=== PATIENT | female | born 1965 | race Caucasian/White ===

== ENCOUNTER 2016-08-08 12:45 | Observation (INO) | payer BC ==
[~2016-08-08] VITALS: Ht 165.1 cm; Wt 93.8 kg
[~2016-08-08 12:45] MED LIST: CLR10 PO; ESCI10TA17 PO
[2016-08-08] MEDS ORDERED: [UNRECOGNIZED DRUG - CODE] PO (12:57)
--- NOTE | 2016-08-08 13:12 | DIAGNOSTIC IMAGING REPORT ---
CHEST ONE VIEW PORTABLE CLINICAL HISTORY: Chest pain. Left arm pressure and numbness. COMPARISON STUDY: Chest radiograph March 30, 2011. FINDINGS: Lung volumes are normal. There is no pneumothorax or pleural effusion. There is no evidence of pulmonary edema. Cardiac size is normal. Mediastinal contours are normal. No consolidation is identified. IMPRESSION: No acute cardiopulmonary findings. Electronically signed by: Jad Gar M.D. 08/08/2016 1:10 PM Dictated Date/Time: 08/08/2016 1:10 PM
[2016-08-08 13:16] LABS: HEMATOCRIT 39.1 % (37-47); MEAN CELL VOLUME 93.1 fL (80-100); MEAN CORPUSCULAR HEMOGLOBIN 31.4 pg (25-34); MEAN CORPUSCULAR HGB CONC 33.8 g/dl (32-36); MEAN PLATELET VOLUME 8.9 fL (7.4-10.4); PLATELET COUNT 326 K/uL (130-400); WHITE BLOOD COUNT 5.91 K/uL (4.8-10.8)
[2016-08-08 13:26] LABS: PARTIAL THROMBOPLASTIN RATIO 1.1; PROTHROMBIN TIME (PATIENT) 10.4 SECONDS (9.0-12.0)
[2016-08-08 13:32] LABS: ALT/SGPT 25 U/L (12-78); AST/SGOT 17 U/L (15-37); BLOOD UREA NITROGEN 14 mg/dl (7-18); BUN/CREATININE RATIO 19.7 (10-20); CALCIUM 9.1 mg/dl (8.5-10.1); CARBON DIOXIDE 24 mmol/L (21-32); CHLORIDE 105 mmol/L (98-107); CREATININE 0.71 mg/dl (0.60-1.20); GLUCOSE 97 mg/dl (70-99); SODIUM 139 mmol/L (136-145)
[2016-08-08 13:37] LABS: ALB/GLOB RATIO 1.1 (0.9-2); ALKALINE PHOSPHATASE 46 U/L (45-117)
[2016-08-08] MEDS ORDERED: OPTIRAY 320 IV PRN (15:15)
--- NOTE | 2016-08-08 15:19 | DIAGNOSTIC IMAGING REPORT ---
CT ANGIOGRAM OF THE CHEST CLINICAL HISTORY: Chest pain and elevated d-dimer COMPARISON STUDY: Chest x-ray dated 08/08/2016 TECHNIQUE: Following the IV administration of 95 mL of Optiray-320, CT angiogram of the thorax was performed from the thoracic inlet to the lung bases utilizing the pulmonary embolus protocol. Images are reviewed in the axial, sagittal, and coronal planes. IV contrast was administered without complication. MIP imaging was performed. CT DOSE: 520.54 mGy.cm FINDINGS: No pathologically enlarged axillary mediastinal or hilar lymph nodes were visualized. There was no evidence of thoracic aortic dilatation. There were no pulmonary artery filling defects to indicate acute pulmonary embolism. No pleural effusions are visualized. There are minor dependent and lingular atelectatic changes. There is a 9 mm hypodensity within the right lobe of the liver. This approaches water attenuation likely represents a small cyst IMPRESSION: 1. No acute intrathoracic findings 2. No evidence of acute pulmonary embolism 3. No evidence of pathologic adenopathy 4. No evidence of focal pulmonary consolidation Electronically signed by: Itz Grimm M.D. 08/08/2016 3:16 PM Dictated Date/Time: 08/08/2016 3:12 PM
--- NOTE | 2016-08-08 16:28 | EMERGENCY ROOM VISIT NOTE ---
History First contact with patient: 13:36 Chief Complaint: CHEST PAIN Stated Complaint: SLIGHT CHEST PAIN, NUMBNESS AND PRESSURE L ARM Nursing Triage Summary: Pt c/o mid sternal chest pressure that started yesterday at 1000 Pt reports pressure is intermittent Pt also report left arm has been going numb for 2 days denies nausea, diaphoresis, SOB History of Present Illness The patient is a 50 year old female who presents to the Emergency Room with complaints of chest pain. The patient states yesterday at approximately 10 AM she had an episode where she fell like someone was "squeezing" her chest. She states it only lasted a few seconds. She had the same pain prior to arrival today. She denies any associated shortness of breath or diaphoresis the patient does admit to feeling some numbness in her left arm. She states that the numbness is getting better and now she just feels a tingling. She states the same thing happened yesterday when she got the pain.. The patient denies any history of cardiac disease but does admit to a family history of early cardiac disease in her father. He had an OK at age 42. The patient also stated that she was recently told that her cholesterol was a little high and that they want her to watch her diet more closely. She does not smoke. The patient is on hormones for menorrhagia. The patient denies any bleeding or clotting disorders. . Review of Systems 10 system review was performed and was negative unless stated otherwise history of present illness. Social History Smoking Status: Never Smoker Smokeless Tobacco Use: No Alcohol Use: none Drug Use: none Marital Status: Housing Status: lives with family Occupation Status: employed Current/Historical Medications Scheduled Escitalopram (Lexapro), 10 MG PO DAILY Loratadine (Claritin), 10 MG PO DAILY Norgestrel & Ethinyl Estradiol (Low-Ogestrel), 1 TAB PO DAILY Allergies Coded Allergies: Bacitracin (Unverified Allergy, Unknown, rash, 08/08/16) Neomycin (Unverified Allergy, Unknown, rash, 08/08/16) Polymyxin B (Unverified Allergy, Unknown, rash, 08/08/16) Sulfa Drugs (Verified Allergy, Unknown, BACTRIM, 08/08/16) Uncoded Allergies: ANTIHISTAMINE (Allergy, Unknown, 04/19/15) Physical Exam Vital Signs Date Time Temp Pulse Resp B/P Pulse Ox O2 Delivery O2 Flow Rate FiO2 08/08/16 14:42 73 18 128/86 99 Room Air 08/08/16 12:54 37.0 73 18 132/91 96 Room Air 08/08/16 12:54 96 Room Air Pain Rating (0-10): 0 Physical Exam GENERAL: 42-year-old white female appears in no acute distress. MENTAL Status: Alert and oriented 3. EYES: PERRLA. EOMs intact. EARS: Canals clear. TMs without fluid level noted. NECK: Supple, no lymphadenopathy noted. No carotid bruits noted. LUNGS: Clear auscultation without wheezes rales or rhonchi. CARDIAC: Regular rate and rhythm without murmur. Pulses is full and equal throughout. ABDOMEN: Positive bowel sounds all 4 quadrants. Soft, nontender to palpation without organomegaly or masses. NEURO:Cranial nerves two through 12 intact. Cerebellar function intact with [id number]. Fine motor intact with alternating finger motions. LOWER EXTREMITIES: Calves are nontender. No palpable cords noted. No cyanosis or edema noted. Negative Homans bilaterally. Medical Decision & Procedures ER Provider Diagnostic Interpretation: CHEST ONE VIEW PORTABLE CLINICAL HISTORY: Chest pain. Left arm pressure and numbness. COMPARISON STUDY: Chest radiograph March 30, 2011. FINDINGS: Lung volumes are normal. There is no pneumothorax or pleural effusion. There is no evidence of pulmonary edema. Cardiac size is normal. Mediastinal contours are normal. No consolidation is identified. IMPRESSION: No acute cardiopulmonary findings. Electronically signed by: Jad Gar M.D. CT ANGIOGRAM OF THE CHEST CLINICAL HISTORY: Chest pain and elevated d-dimer COMPARISON STUDY: Chest x-ray dated 08/08/2016 TECHNIQUE: Following the IV administration of 95 mL of Optiray-320, CT angiogram of the thorax was performed from the thoracic inlet to the lung bases utilizing the pulmonary embolus protocol. Images are reviewed in the axial, sagittal, and coronal planes. IV contrast was administered without complication. MIP imaging was performed. CT DOSE: 520.54 mGy.cm FINDINGS: No pathologically enlarged axillary mediastinal or hilar lymph nodes were visualized. There was no evidence of thoracic aortic dilatation. There were no pulmonary artery filling defects to indicate acute pulmonary embolism. No pleural effusions are visualized. There are minor dependent and lingular atelectatic changes. There is a 9 mm hypodensity within the right lobe of the liver. This approaches water attenuation likely represents a small cyst IMPRESSION: 1. No acute intrathoracic findings 2. No evidence of acute pulmonary embolism 3. No evidence of pathologic adenopathy 4. No evidence of focal pulmonary consolidation Electronically signed by: Itz Grimm M.D. 08/08/2016 3:16 PM 08/08/2016 1:10 PM Dictated Date/Time: 08/08/2016 1:10 PM Laboratory Results 08/08/16 13:00 08/08/16 13:00 Test 08/08/16 13:00 08/08/16 13:09 Red Blood Count 4.20 M/uL (4.2-5.4) Mean Corpuscular Volume 93.1 fL (80-100) Mean Corpuscular Hemoglobin 31.4 pg (25-34) Mean Corpuscular Hemoglobin Concent 33.8 g/dl (32-36) RDW Standard Deviation 45.7 fL (36.4-46.3) RDW Coefficient of Variation 13.4 % (11.5-14.5) Mean Platelet Volume 8.9 fL (7.4-10.4) Prothrombin Time 10.4 SECONDS (9.0-12.0) Prothromb Time International Ratio 1.0 (0.9-1.1) Activated Partial Thromboplast Time 28.5 SECONDS (21.0-31.0) Partial Thromboplastin Ratio 1.1 D-Dimer 540 ug/L FEU (0-500) Anion Gap 10.0 mmol/L (3-11) Est Creatinine Clear Calc Drug Dose 110.5 ml/min Estimated GFR () 116.7 Estimated GFR (Non- 100.7 BUN/Creatinine Ratio 19.7 (10-20) Calcium Level 9.1 mg/dl (8.5-10.1) Total Bilirubin 0.3 mg/dl (0.2-1) Aspartate Amino Transf (AST/SGOT) 17 U/L (15-37) Alanine Aminotransferase (ALT/SGPT) 25 U/L (12-78) Alkaline Phosphatase 46 U/L (45-117) Total Creatine Kinase 102 U/L (26-192) Creatine Kinase MB < 0.5 ng/ml (0.5-3.6) Creatine Kinase MB Ratio (0-3.0) Total Protein 7.5 gm/dl (6.4-8.2) Albumin 4.0 gm/dl (3.4-5.0) Globulin 3.5 gm/dl (2.5-4.0) Albumin/Globulin Ratio 1.1 (0.9-2) Bedside Troponin I 0.000 ng/ml (0-0.045) ECG Indication: chest pain Rhythm: normal sinus Findings: no acute ischemic change ED Course Critical pathway was initiated prior to my evaluation of the patient. The patient had been placed on a monitor and continuous pulse ox. IV access was obtained. Chest x-ray was ordered and interpreted by the radiologist as above without any acute findings. EKG was ordered and interpreted by myself as above without any acute findings. This will later be interpreted by the import/export freight forwarder. CBC and differential, renal profile, LFTs and lipase levels were ordered. Coags were ordered, CK-MB, [id number] troponin had already been ordered. Labs were reviewed and were unremarkable. After I evaluated the patient I ordered a [id number] d-dimer. This was elevated and therefore a CT of the chest for PE was ordered and interpreted by the radiologist as above without any acute findings. A second troponin was also ordered and was also negative. The patient's case was discussed with Dr. Campbell who agreed with treatment plan. The hospitalist was consulted for admission. Medical Decision Differential diagnosis include PE, acute OK, angina, panic attack Due to the patient's history of early cardiac disease the patient will be admitted for cardiac rule out. Impression Primary Impression: Chest pain Departure Information Dispostion Being Evaluated By Hospitalist Condition GOOD Referrals Vero Montano, C.R.N.P (PCP) Patient Instructions My [facility]
[2016-08-08] MEDS ORDERED: BISACODYL 10 MG SUPP PR PRN (16:45)
[2016-08-08] MEDS ORDERED: ALUMINUM/MAGNESIUM/SIMETH (MAALOX MAX) 30 ML UDC PO PRN (16:45)
[2016-08-08] MEDS ORDERED: ACETAMINOPHEN 325 MG TAB PO PRN (16:45)
[2016-08-08] MEDS ORDERED: ONDANSETRON INJ 2 MG/ML 2 ML VIAL IV PRN ×2 (16:45)
[2016-08-08] MEDS ORDERED: LORAZEPAM 2 MG/ML 1 ML VIAL IV PRN (16:45)
[2016-08-08] MEDS ORDERED: NITROGLYCERIN 0.4 MG SL PER TAB CHARGE SL PRN (16:45)
[2016-08-08] MEDS ORDERED: PROMETHAZINE HCL INJ 12.5 MG in SODIUM CHLORIDE 0.9% 50ML 50 ML IV PRN (16:45)
[2016-08-08] MEDS ORDERED: ZOLPIDEM TARTRATE 5 MG TAB PO PRN (16:45)
[2016-08-08] MEDS ORDERED: DiphenhydrAMINE HCL 50 MG/ML VIAL IV PRN (16:45)
[2016-08-08] MEDS ORDERED: MoRPHine SULFATE 2 MG/ML CARP IV PRN (16:45)
[2016-08-08] MEDS ORDERED: MAGNESIUM HYDROXIDE SUSP 30 ML UDC PO PRN (16:45)
[2016-08-08 17:53] VITALS: BP 146/93; PULSE 76; TEMP 37.1; O2SAT 96; Ht 165.1 cm; Wt 93.8 kg
[2016-08-08 19:27] VITALS: BP 121/83; PULSE 73; TEMP 36.5; O2SAT 97
[2016-08-08 20:16] VITALS: O2SAT 96
[2016-08-08] MEDS: DOCUSATE SODIUM 100 MG CAP PO SCH (20:21)
[2016-08-08] MEDS ORDERED: IV FLUIDS COMPLETED PRN (20:45)
--- NOTE | 2016-08-08 20:56 | History and Physical ---
History & Physical Date & Time of Service: Aug 08, 2016 at 20:43 Chief Complaint: Chest Pain Radiating To Arm Primary Care Physician: Vero Montano C.R.N.P History of Present Illness Source: patient The patient is a 50-year-old female who presents emergency department complaining of someone squeezing her chest and with discomfort radiating to her left arm. First episode yesterday morning which resolved spontaneously after a few seconds, and a second episode was this morning of the same duration. Her father had an MD at age 42, and she became appropriately concerned and presents emergency department for assessment. She's had no signs of respiratory infection, and no history of asthma or COPD or any of the lung dysfunction. She reports that her last visit her PCP told her that her cholesterol was not optimal and was told to watch her diet more closely. Social History Smoking Status: Never Smoker Smokeless Tobacco Use: No Alcohol Use: none Drug Use: none Marital Status: Housing status: lives with family Occupational Status: employed Multi-Drug Resistant Organisms History of MDRO: No Allergies Coded Allergies: Bacitracin (Unverified Allergy, Unknown, rash, 08/08/16) Neomycin (Unverified Allergy, Unknown, rash, 08/08/16) Polymyxin B (Unverified Allergy, Unknown, rash, 08/08/16) Sulfa Drugs (Verified Allergy, Unknown, BACTRIM, 08/08/16) Uncoded Allergies: ANTIHISTAMINE (Allergy, Unknown, 04/19/15) Home Medications Scheduled Escitalopram (Lexapro), 10 MG PO DAILY Loratadine (Claritin), 10 MG PO DAILY Norgestrel & Ethinyl Estradiol (Low-Ogestrel), 1 TAB PO DAILY Review of Systems The patient denies palpitations, cough, lower extremity swelling, vision change , hearing change, sore throat, fevers, chills, sweats, weight change, fatigue, nausea, vomiting, abdominal pain, pelvic pain, blood in urine or stool, dysuria , urinary frequency or urgency, lightheadedness, dizziness, headache, memory loss, rash, abnormal bruising or bleeding, imbalance, focal or generalized weakness, numbness or tingling in legs, arthralgias or myalgias, back or neck pain, night sweats, or allergy symptoms. The review of systems is otherwise negative other than for that already noted above, and at least 10 systems have been reviewed. Physical Exam Vital Signs Date Time Temp Pulse Resp B/P Pulse Ox O2 Delivery O2 Flow Rate FiO2 08/08/16 20:16 96 Room Air 08/08/16 19:27 36.5 73 18 121/83 97 Room Air 08/08/16 17:53 37.1 76 18 146/93 96 Room Air 08/08/16 17:32 76 18 122/78 96 Room Air 08/08/16 16:33 77 18 105/75 97 Room Air 08/08/16 14:42 73 18 128/86 99 Room Air 08/08/16 12:54 37.0 73 18 132/91 96 Room Air 08/08/16 12:54 96 Room Air The patient is awake, well-developed and adequately nourished, alert and oriented 3, normocephalic and atraumatic, lying in bed and in no acute distress. HEENT--PERRL, EOMI, mucous membranes moist, and oropharynx normal. Neck--supple, no JVD or bruits, thyroid normal, trachea midline, no adenopathy. Heart--normal S1 and S2, no extra beats, no murmurs, rubs or gallops. Lungs--clear bilaterally with good air movement, no respiratory distress, no accessory muscle use. Abdomen--normal bowel sounds and soft, nontender and nondistended, no hernias or masses, no organomegaly. Extremities--no cyanosis, clubbing or edema. There are good distal pulses b/l. Dermatologic--normal skin turgor, normal color, warm and dry, no abnormal lymph nodes, no rash. Neurologic--cranial nerves II through XII grossly intact, motor and sensory examination normal. Rheumatologic--normal range of motion, nontender, muscles and joints. Psychiatric--normal affect. Diagnostics Laboratory Results Results Past 24 Hours Test 08/08/16 13:00 08/08/16 13:09 08/08/16 17:12 Range/Units White Blood Count 5.91 4.8-10.8 K/uL Red Blood Count 4.20 4.2-5.4 M/uL Hemoglobin 13.2 12.0-16.0 g/dL Hematocrit 39.1 37-47 % Mean Corpuscular Volume 93.1 80-100 fL Mean Corpuscular Hemoglobin 31.4 25-34 pg Mean Corpuscular Hemoglobin Concent 33.8 32-36 g/dl RDW Standard Deviation 45.7 36.4-46.3 fL RDW Coefficient of Variation 13.4 11.5-14.5 % Platelet Count 326 130-400 K/uL Mean Platelet Volume 8.9 7.4-10.4 fL Prothrombin Time 10.4 9.0-12.0 SECONDS Prothromb Time International Ratio 1.0 0.9-1.1 Activated Partial Thromboplast Time 28.5 21.0-31.0 SECONDS Partial Thromboplastin Ratio 1.1 D-Dimer 540 0-500 ug/L FEU Sodium Level 139 136-145 mmol/L Potassium Level 4.0 3.5-5.1 mmol/L Chloride Level 105 98-107 mmol/L Carbon Dioxide Level 24 21-32 mmol/L Anion Gap 10.0 3-11 mmol/L Blood Urea Nitrogen 14 7-18 mg/dl Creatinine 0.71 0.60-1.20 mg/dl Est Creatinine Clear Calc Drug Dose 110.5 ml/min Estimated GFR () 116.7 Estimated GFR (Non- 100.7 BUN/Creatinine Ratio 19.7 10-20 Random Glucose 97 70-99 mg/dl Calcium Level 9.1 8.5-10.1 mg/dl Total Bilirubin 0.3 0.2-1 mg/dl Aspartate Amino Transf (AST/SGOT) 17 15-37 U/L Alanine Aminotransferase (ALT/SGPT) 25 12-78 U/L Alkaline Phosphatase 46 45-117 U/L Total Creatine Kinase 102 107 26-192 U/L Creatine Kinase MB < 0.5 < 0.5 0.5-3.6 ng/ml Creatine Kinase MB Ratio 0-3.0 Total Protein 7.5 6.4-8.2 gm/dl Albumin 4.0 3.4-5.0 gm/dl Globulin 3.5 2.5-4.0 gm/dl Albumin/Globulin Ratio 1.1 0.9-2 Bedside Troponin I 0.000 0-0.045 ng/ml Troponin I < 0.015 0-0.045 ng/ml Diagnostic Radiology Patient Name: PITA FERGUSON Unit Number: [id number] Dictated: 08/08/161309 Transcribed: 08/08/161309 Printed Date/Time: [~ rep prt dt]/[~ rep prt tm] [~ rep ct labl] - [~ rep ct ivnm] [facility] [place] [address] Dictated: 08/08/161309 Transcribed: 08/08/161309 JA Printed Date/Time: [~ rep prt dt]/[~ rep prt tm] [~ rep ct labl] - [~ rep ct ivnm] CHEST ONE VIEW PORTABLE CLINICAL HISTORY: Chest pain. Left arm pressure and numbness. COMPARISON STUDY: Chest radiograph March 30, 2011. FINDINGS: Lung volumes are normal. There is no pneumothorax or pleural effusion. There is no evidence of pulmonary edema. Cardiac size is normal. Mediastinal contours are normal. No consolidation is identified. IMPRESSION: No acute cardiopulmonary findings. Electronically signed by: Jad Gar M.D. 08/08/2016 1:10 PM Dictated Date/Time: 08/08/2016 1:10 PM The status of this report is Signed. Draft = Not yet reviewed or approved by Radiologist. Signed = Reviewed and approved by Radiologist. <AttendingPhy></AttendingPhy> <FamilyPhy></FamilyPhy> <PrimaryPhy>Vero Montano C.R.N.P</PrimaryPhy> <UnitNumber>[id number]</UnitNumber> <VisitNumber> [id number]</VisitNumber> <PatientName>PHYLLISPITA Hough</PatientName> < DateOfBirth>1965</DateOfBirth> <Location>[facility]</Location> <ServiceDate></ServiceDate> <MNE>ESINDI</MNE> <OrderingPhy>ED, PROTOCOL</OrderingPhy> < OrderingPhyMNE>f rep ord dr tariq</OrderingPhyMNE> <DictatingPhyMNE>f rep dict dr tariq</DictatingPhyMNE> <CCListMNE>f rep ct mne</CCListMNE> <AdmittingPhyMNE>f pt admit dr tariq</AdmittingPhyMNE> <AttendingPhyMNE>f pt attend dr tariq</ AttendingPhyMNE> <ConsultingPhyMNE>f pt consult dr tariq</ConsultingPhyMNE> <FamilyPhyMNE>f pt fam dr tariq</FamilyPhyMNE> <OtherPhyMNE>f pt other dr tariq</OtherPhyMNE> < PrimaryPhyMNE>f pt prim care dr tariq</PrimaryPhyMNE> <ReferringPhyMNE>f pt referring dr tariq</ReferringPhyMNE> Patient Name: PITA FERGUSON Unit Number: [id number] Dictated: 08/08/161511 Transcribed: 08/08/161511 ARG Printed Date/Time: [~ rep prt dt]/[~ rep prt tm] [~ rep ct labl] - [~ rep ct ivnm] [facility] [place] [address] Dictated: 08/08/161511 Transcribed: 08/08/161511 ARG Printed Date/Time: [~ rep prt dt]/[~ rep prt tm] [~ rep ct labl] - [~ rep ct ivnm] CT ANGIOGRAM OF THE CHEST CLINICAL HISTORY: Chest pain and elevated d-dimer COMPARISON STUDY: Chest x-ray dated 08/08/2016 TECHNIQUE: Following the IV administration of 95 mL of Optiray-320, CT angiogram of the thorax was performed from the thoracic inlet to the lung bases utilizing the pulmonary embolus protocol. Images are reviewed in the axial, sagittal, and coronal planes. IV contrast was administered without complication. MIP imaging was performed. CT DOSE: 520.54 mGy.cm FINDINGS: No pathologically enlarged axillary mediastinal or hilar lymph nodes were visualized. There was no evidence of thoracic aortic dilatation. There were no pulmonary artery filling defects to indicate acute pulmonary embolism. No pleural effusions are visualized. There are minor dependent and lingular atelectatic changes. There is a 9 mm hypodensity within the right lobe of the liver. This approaches water attenuation likely represents a small cyst IMPRESSION: 1. No acute intrathoracic findings 2. No evidence of acute pulmonary embolism 3. No evidence of pathologic adenopathy 4. No evidence of focal pulmonary consolidation Electronically signed by: Itz Grimm M.D. 08/08/2016 3:16 PM Dictated Date/Time: 08/08/2016 3:12 PM The status of this report is Signed. Draft = Not yet reviewed or approved by Radiologist. Signed = Reviewed and approved by Radiologist. <AttendingPhy></AttendingPhy> <FamilyPhy>Vero Montano C.R.N.P</FamilyPhy> < PrimaryPhy>Vero Montano C.R.N.P</PrimaryPhy> <UnitNumber>[id number]</ UnitNumber> <VisitNumber>[id number]</VisitNumber> <PatientName>PITA FERGUSON</PatientName> <DateOfBirth>1965</DateOfBirth> <Location>[facility]</ Location> <ServiceDate>08/08/16</ServiceDate> <MNE>ESINDI</MNE> <OrderingPhy> Alyson Renee PA-C</OrderingPhy> <OrderingPhyMNE>f rep ord dr tariq</ OrderingPhyMNE> <DictatingPhyMNE>f rep dict dr tariq</DictatingPhyMNE> <CCListMNE> f rep ct mne</CCListMNE> <AdmittingPhyMNE>f pt admit dr tariq</AdmittingPhyMNE> < AttendingPhyMNE>f pt attend dr tariq</AttendingPhyMNE> <ConsultingPhyMNE>f pt consult dr tariq</ConsultingPhyMNE> <FamilyPhyMNE>f pt fam dr tariq</FamilyPhyMNE> <OtherPhyMNE>f pt other dr tariq</OtherPhyMNE> < PrimaryPhyMNE>f pt prim care dr tariq</PrimaryPhyMNE> <ReferringPhyMNE>f pt referring dr tariq</ReferringPhyMNE> EKG EKG shows normal sinus rhythm at 69 bpm, and in no acute ST-T changes. Impression Assessment and Plan Precordial chest pain/squeezing with radiation to left arm--the patient will be admitted to the telemetry unit, for serial cardiac enzymes, cardiac rhythm monitoring, and a 2-D echocardiogram with Dopplers. If the above workup is negative, she should have a stress test prior to discharge. She has of note, had a stress test several years ago which was normal. Depression--continue Lexapro 10 mg by mouth daily. Allergy--continue loratadine 10 mg by mouth daily. control--continue for now. She did have a negative CT angio of the chest for PE. Level of Care Telemetry Advanced Directives Existing Advance Directive: No Existing Living Will: No Existing Power of Hospital Intern: No Resuscitation Status FULL RESUSCITATION VTE Prophylaxis VTE Risk Assessment Done? Y/N: Yes Risk Level: Low Given or contraindicated: SCD's Social Service Consult None Apply
[2016-08-09 00:28] VITALS: BP 126/79; PULSE 70; TEMP 36.7; O2SAT 96
[2016-08-09 04:39] VITALS: BP 127/85; PULSE 74; TEMP 36.8; O2SAT 98
[2016-08-09 07:49] VITALS: BP 138/75; PULSE 72; TEMP 36.9; O2SAT 95
[2016-08-09] MEDS: DOCUSATE SODIUM 100 MG CAP PO SCH (07:53)
[2016-08-09 08:15] LABS: BASO % 0.5 %; BASO ABS # 0.03 K/uL (0-0.2); COMPLETE YES; EOS % 4.4 %; HEMATOCRIT 40.8 % (37-47); IG% 0.3 %; LYMPH % 35.5 %; LYMPH ABS # 2.12 K/uL (1.2-3.4); MEAN CELL VOLUME 93.8 fL (80-100); MEAN CORPUSCULAR HGB CONC 33.1 g/dl (32-36); MEAN PLATELET VOLUME 8.9 fL (7.4-10.4); NEUT % 50.3 %; PLATELET COUNT 331 K/uL (130-400); RED BLOOD COUNT 4.35 M/uL (4.2-5.4); WHITE BLOOD COUNT 5.97 K/uL (4.8-10.8)
[2016-08-09 08:47] LABS: BUN/CREATININE RATIO 20.7 (10-20); CALCIUM 8.9 mg/dl (8.5-10.1); CREATININE 0.71 mg/dl (0.60-1.20); MAGNESIUM 2.3 mg/dl (1.8-2.4); POTASSIUM 4.3 mmol/L (3.5-5.1)
[2016-08-09] MEDS ORDERED: LORATADINE 10 MG TAB PO SCH (09:00)
[2016-08-09] MEDS ORDERED: ESCITALOPRAM OXALATE 10 MG TAB PO SCH (09:00)
[2016-08-09 11:49] VITALS: BP 113/78; PULSE 70; TEMP 36.8; O2SAT 97
[2016-08-09] MEDS ORDERED: PERFLUTREN LIPID MICROSPHERE (DEFINITY) IV ONE (14:38)
--- NOTE | 2016-08-09 14:46 | CARDIOLOGY CONSULTATION ---
DATE OF CONSULTATION: 08/09/2016 DATE OF CONSULTATION: 08/09/2016. REFERRING PHYSICIAN: Dr. White. REASON FOR CONSULTATION: Chest pain. HISTORY OF PRESENT ILLNESS: Ms. Simons is a very pleasant 50-year-old woman with no real significant past medical history who presented to the Emergency Department last night in the setting of 2 episodes of chest pain. Cardiology consult for further management and recommendations regarding chest pain. The patient has no prior outpatient registered nurse obstetrics. The patient states that she has been in her usual state of health up until 2 days prior to presentation. Initially she was at her desk when developed substernal chest pain at its worst approximately 5/10. The pain lasted for seconds but was associated with numbness in her left arm which persisted for minutes. Symptoms resolved and she had no further symptoms that day. The next day again while she was at her desk at work again had another similar episode again with substernal chest pain and left arm numbness. She denied any associated nausea, vomiting, lightheadedness, palpitations and pain did not radiate anywhere else. The patient does have a history of anxiety and prior panic attacks but these symptoms did not feel similar to that. She exercises on occasion, mostly walking and when she does she denies any recent cardiac symptoms. The patient has a significant family history for coronary artery disease with father who had an WI in his 40s. Otherwise, no other significant cardiac risk factors. She reports having one stress test several years back and was told that it was negative. No other significant cardiac history. PAST MEDICAL HISTORY: 1. Anxiety/depression. 2. Allergic rhinitis. No other significant past medical history. ALLERGIES: ALLERGIC TO BACITRACIN, NEOMYCIN, POLYMYXIN, AND SULFA DRUGS. SOCIAL HISTORY: She is , has 2 children ages 20 and 17. 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 Denies ever smoking. No significant alcohol use. No other illicit drugs. FAMILY HISTORY: Father with an WI in his 40s. Paternal grandfather also with significant premature coronary disease. REVIEW OF SYSTEMS: A 12 point review of system completed and otherwise negative unless stated in HPI. PHYSICAL EXAMINATION: VITAL SIGNS: Temperature 36.8, pulse 70, blood pressure 113/78, satting 97% on room air. GENERAL: The patient appears comfortable in no acute distress. HEAD, EYES, EARS, NOSE, AND THROAT: Sclerae anicteric. Oropharynx clear. Mucous membranes moist. NECK: Supple with no lymphadenopathy. LUNGS: Clear to auscultation bilaterally. HEART: Regular rhythm with no murmurs, rubs or gallops. ABDOMEN: Soft, nontender, nondistended with positive bowel sounds. EXTREMITIES: Warm. She has no significant lower extremity edema. She had intact distal pulses including 2+ radial pulses bilaterally. SKIN: Shows no rashes or lesions. NEUROLOGIC: Cranial nerves II-XII grossly intact. Remainder of exam is nonfocal. PSYCHIATRIC: Alert and oriented x3 with normal mood and affect. LABORATORY DATA: White blood cell count 5.9, hemoglobin 13.5, platelets 331. INR 1.1. D-dimer was elevated at 550. Her LFTs were within normal limits. Her sodium was 140, potassium 4.3, BUN 15, creatinine 0.7. Her magnesium was 2.3. She had troponins checked that were negative x3. IMAGING: Chest x-ray showed no acute cardiopulmonary process. CTA was negative for PE. There was no evidence of thoracic aortic dilation and no significant lung pathology. CARDIAC TESTING: EKG showed normal sinus rhythm at a rate of [address] abnormalities. Repeat EKG this a.m. showed normal sinus rhythm with ventricular rate of [address] and again no significant ST abnormalities. Telemetry reviewed and no significant events. IMPRESSION AND PLAN: Chest pain. Patient here with 2 episodes of rest chest pain with typical features in the setting of significant family history for CAD. In that setting, I feel that risk of ACS is slightly elevated and that additional risk stratification is warranted. Based on presentation risk of adverse cardiac event is low and will plan to proceed with stress test. Will plan on exercise stress echo later this afternoon. Assuming this testing is unremarkable the patient could be discharged to home with PCP followup. Thank you for allowing us to participate in the care of this patient. Please contact with any questions. BLESSING
--- NOTE | 2016-08-09 14:57 | ECHOCARDIOGRAM REPORT ---
*NOTICE TO RECEIVING CONSTITUTION PARTY AGENCY This information is strictly Confidential and protected under [place] law. [place] law prohibits you from making any further disclosure of this information unless further disclosure is expressly permitted by the written consent of the person to whom it pertains or is authorized by law. A general authorization for the release of medical or other information is not sufficient for this purpose. Hospital accepts no responsibility if the information is made available to any other person, INCLUDING THE PATIENT. Interpretation Summary * Name: PITA FERGUSON Study Date: 08/09/2016 08:08 AM BP: 138/75 mmHg * Patient Location: C.2T\S\S236\S\1 HR: 63 * : 1965 (M/d/yyyy) Gender: Female Height: 65 in * Age: 50 yrs Ethnicity: CA Weight: 209 lb * Ordering Physician: Matt White * Referring Physician: Self, Referred * Performed By: Margot Jacobsen RCS * * Reason For Study: CHEST PAIN * BSA: 2.0 m2 * -- Conclusions -- * 1. Normal LV size. Borderline concetric LVH. * 2. Normal LV systolic function. LVEF 55-60%. No regional wall motion abnormalities. No diastolic dysfunction. * 3. Normal RV size and function. * 4. No significant valvular pathology. * 5. No prior studies for comparison. Procedure Details * A complete two-dimensional transthoracic echocardiogram was performed (2D, M-mode, Doppler and color flow Doppler). Left Ventricle * The left ventricle is normal in size. * There is borderline concentric left ventricular hypertrophy. * Ejection Fraction = 55-60%. Right Ventricle * The right ventricle is grossly normal size. * The right ventricular systolic function is normal. Atria * The left atrial size is normal. * Right atrial size is normal. * There is no evidence of atrial septal defect, but resolution does not allow assessment for a patent foramen ovale. Mitral Valve * The mitral valve is grossly normal. * Mitral stenosis is absent. * Significant mitral regurgitation is absent. Tricuspid Valve * The tricuspid valve is not well visualized, but is grossly normal. * There is no tricuspid stenosis. * Significant tricuspid regurgitation is absent. Aortic Valve * The aortic valve opens well. * The aortic valve is tricuspid. The leaflet thickness if normal. There is no aortic stenosis, and no significant insufficiency. * No hemodynamically significant valvular aortic stenosis. * There is no significant aortic regurgitation. Pulmonic Valve * The pulmonary valve is inadequately visualized, but the Doppler data is adequate for interpretation. * There is no pulmonic valvular stenosis. * Trace pulmonic valvular regurgitation. Great Vessels * The aortic root and proximal ascending aorta are normal sized. Pericardium/Pleural * There is no pericardial effusion. Great Vessels * Normal inferior vena cava size and collapsability with sniff indicates a normal right atrial pressure of 3 mmHg MMode 2D Measurements and Calculations IVSd 1.0 cm IVSs 1.2 cm LVIDd 3.6 cm LVIDs 3.2 cm LVPWd 1.3 cm LVPWs 1.4 cm IVS/LVPW 0.77 FS 10.6 % EDV(Teich) 54.7 ml ESV(Teich) 41.8 ml EF(Teich) 23.6 % EDV(cubed) 47.0 ml ESV(cubed) 33.6 ml EF(cubed) 28.4 % % IVS thick 19.6 % % LVPW thick 4.0 % LV mass(C)d 138.8 grams LV mass(C)dI 68.9 grams/m\S\2 LV mass(C)s 138.9 grams LV mass(C)sI 68.9 grams/m\S\2 SV(Teich) 12.9 ml SI(Teich) 6.4 ml/m\S\2 SV(cubed) 13.4 ml SI(cubed) 6.6 ml/m\S\2 Ao root diam 2.8 cm Ao root area 6.0 cm\S\2 LA dimension 3.4 cm LA/Ao 1.2 LVOT diam 2.0 cm LVOT area 3.0 cm\S\2 LVAd ap4 27.8 cm\S\2 LVLd ap4 7.6 cm EDV(MOD-sp4) 85.2 ml EDV(sp4-el) 86.8 ml LVAs ap4 19.2 cm\S\2 LVLs ap4 7.2 cm ESV(MOD-sp4) 43.4 ml ESV(sp4-el) 43.6 ml EF(MOD-sp4) 49.0 % EF(sp4-el) 49.8 % LVAd ap2 25.6 cm\S\2 LVLd ap2 8.3 cm EDV(MOD-sp2) 63.5 ml EDV(sp2-el) 67.0 ml LVAs ap2 18.7 cm\S\2 LVLs ap2 7.6 cm ESV(MOD-sp2) 37.7 ml ESV(sp2-el) 39.0 ml EF(MOD-sp2) 40.6 % EF(sp2-el) 41.8 % LVLd %diff 8.5 % EDV(MOD-bp) 77.4 ml LVLs %diff 6.1 % ESV(MOD-bp) 41.9 ml EF(MOD-bp) 45.8 % SV(MOD-sp4) 41.8 ml SI(MOD-sp4) 20.7 ml/m\S\2 SV(MOD-sp2) 25.8 ml SI(MOD-sp2) 12.8 ml/m\S\2 SV(MOD-bp) 35.5 ml SI(MOD-bp) 17.6 ml/m\S\2 SV(sp4-el) 43.2 ml SI(sp4-el) 21.4 ml/m\S\2 SV(sp2-el) 28.0 ml SI(sp2-el) 13.9 ml/m\S\2 Doppler Measurements and Calculations MV E max kendrick 62.0 cm/sec MV A max kendrick 43.4 cm/sec MV E/A 1.4 MV P1/2t max kendrick 71.8 cm/sec MV P1/2t 86.9 msec MVA(P1/2t) 2.5 cm\S\2 MV dec slope 241.9 cm/sec\S\2 MV dec time 0.27 sec Ao V2 max 116.5 cm/sec Ao max PG 5.4 mmHg Ao max PG (full) 2.1 mmHg MANNY(V,A) 2.4 cm\S\2 MANNY(V,D) 2.4 cm\S\2 LV V1 max PG 3.3 mmHg LV V1 max 91.1 cm/sec PA V2 max 95.3 cm/sec PA max PG 3.6 mmHg
--- NOTE | 2016-08-09 15:11 | Discharge Instructions ---
Discharge Instructions Admission Reason for Admission: Chest Pain Radiating To Arm Discharge Discharge Diagnosis / Problem: Non-cardiac chest pain Discharge Goals Goal(s): Decrease discomfort Activity Recommendations Activity Limitations: resume your previous activity . Instructions / Follow-Up Instructions / Follow-Up Follow up with PCP within one week. Current Hospital Diet Patient's current hospital diet: AHA Diet (Heart Healthy) Discharge Diet Recommended Diet: AHA Diet (Heart Healthy) Procedures Procedures Performed: Exercise stress echocardiogram Pending Studies Studies pending at discharge: no Work Instructions Return To Work: 1 day Medical Emergencies . Who to Call and When: Medical Emergencies: If at any time you feel your situation is an emergency, please call 911 immediately. . Non-Emergent Contact Non-Emergency issues call your: Primary Care Provider Call Non-Emergent contact if: your pain is not controlled, your pain is worsening, you have any medication questions . . "Provider Documentation" section prepared by Homer Gambino. VTE Core Measure Inpt VTE Proph given/why not?: SCD's
[2016-08-09 15:16] VITALS: BP 113/78; PULSE 70; TEMP 36.8; O2SAT 97
--- NOTE | 2016-08-09 15:45 | EXERCISE STRESS ECHO ---
*NOTICE TO RECEIVING CONSTITUTION PARTY AGENCY This information is strictly Confidential and protected under [place] law. [place] law prohibits you from making any further disclosure of this information unless further disclosure is expressly permitted by the written consent of the person to whom it pertains or is authorized by law. A general authorization for the release of medical or other information is not sufficient for this purpose. Hospital accepts no responsibility if the information is made available to any other person, INCLUDING THE PATIENT. Interpretation Summary * Name: PITA FERGUSON Study Date: 08/09/2016 01:28 PM BP: 104/65 mmHg * Patient Location: C.2T\S\S236\S\1 HR: 64 * : 1965 (M/d/yyyy) Gender: Female Height: 65 in * Age: 50 yrs Ethnicity: CA Weight: 206 lb * Ordering Physician: Epi Nuñez * Referring Physician: Self, Referred * Performed By: Corazon Álvarez RDCS * * Reason For Study: CHEST PAIN * BSA: 2.0 m2 * History: CHEST PAIN * -- Conclusions -- * 1. Negative exercise stress echo for ischemia at 96% MPHR. * 2. Negative stress ECG for ischemia. * 3. Normal functional capacity. Exercised for 7:11 min. Achieved 8.8 METS. No exercise induced chest pain. * 4. Normal resting LV function. See prior Echo report from today for full resting study details. Procedure Details * ECHOEX, CPT #82812 * A contrast injection of Definity was performed to improve assessment of LV function. * Contrast was injected into an intravenous site in the right arm. * One vial of Definity ultrasound contrast was diluted in normal saline to a total volume of 10 ml. A total of '4' ml of solution was administered during imaging. * Lot # [id number] of Definity utilized for procedure. * Expiration date JAN 06. * The attending nurse who injected the contrast agent was ARGENTINA LOWRY RN. Left Ventricular Findings with Stress * This was essentially a normal study. Left Ventricle * The left ventricle is grossly normal size. * There is borderline concentric left ventricular hypertrophy. * The left ventricular ejection fraction increases normally with stress. The left ventricular end-systolic cavity size reduces post-stress (normal response). The left ventricular wall motion with stress is normal. * Ejection Fraction = 55-60%. Stress Parameters * Normal baseline electrocardiogram. * Stress ECG: No ST changes. No arrhythmias. * No arrhythmia were noted with stress. * The stress portion of this study was personally supervised by the undersigned interpreting physician. * Rest heart rate was '64' BPM. * Rest blood pressure was '104/65' * Maximum heart rate achieved was 166 bpm. * Maximum heart rate was 96 % of maximum age-predicted heart rate. * Maximum blood pressure was '124/69' * Total exercise time was '7:11' * Maximum exercise MET level achieved was '8.80' METS * Maximum treadmill speed was '3.4' miles per hour. * Maximum treadmill elevation was '14.00'% grade. * Exercise was terminated due to 'ACHIEVING TARGET HR' Left Ventricular Findings with Stress * The study was technically difficult, but visualization was adequate with the administration of Definity ultrasound contrast.
--- NOTE | 2016-08-10 08:35 | Discharge Summary ---
Discharge Summary Admission Date: Aug 08, 2016 at 16:38 Discharge Date: Aug 09, 2016 Discharge Disposition: Home Principal Diagnosis: Non-cardiac chest pain Procedures: Exercise stress echo: negative. Consultations: Cardiology Medication Reconciliation Continued Medications: Escitalopram (Lexapro) 10 Mg Tab 10 MG PO DAILY, 0 Refills Loratadine (Claritin) 10 Mg Tab 10 MG PO DAILY, 0 Refills Norgestrel & Ethinyl Estradiol (Low-Ogestrel) 1 Tab Tab 1 TAB PO DAILY for 28 Days, #28 TAB 11 Refills Discharge Exam Physical Exam: General Appearance: no apparent distress Eyes: sclerae normal Neck: no JVD Respiratory/Chest: chest non-tender, lungs clear, no respiratory distress Cardiovascular: regular rate, rhythm, no edema, no murmur Abdomen / GI: normal bowel sounds, non tender, soft Extremities: no pedal edema Neurologic/Psychiatric: alert, oriented x 3 Skin: normal color, warm/dry Hospital Course Ms. Simons presented complaining of two episodes of atypical chest pain. Her initial work up in the ED, including EKG and CTA chest was non-revealing. Serial cardiac enzymes were negative. By the following morning, she was feeling much better and denied any further pain. She was evaluated by Cardiology and underwent an exercise stress echo, which was normal. At this point, she was discharged home in stable condition and asked to follow up with her PCP within a week. She was agreeable for discharge and all of her questions were answered to her satisfaction. This includes examination of the patient, discharge planning, medication reconciliation, and communication with other providers. Discharge Instructions Please refer to the electronic Patient Visit Report (Discharge Instructions) for additional information. Follow-Up with PCP within one week. Additional Copies To Vero Montano C.R.N.P
[2016-08-10] MEDS ORDERED: NORGESTIMATE ETH ESTRADIOL PO SCH (09:00)
[2016-08-10] MEDS ORDERED: [UNRECOGNIZED DRUG - OTHER] PO SCH (09:00)
== END 2016-08-09 16:31 | disposition home or self-care (01) ==
LOC: ENRESERVDT → ENRESERVTM → C.EDB 12:47 → C.2T 16:38
PROVIDERS: ADMIT Hospitalist; ATTEND Hospitalist
DX: R07.89 Other chest pain (principal); F32.9 Major depressive disorder, single episode, unspecified; M79.602 Pain in left arm; I25.10 Atherosclerotic heart disease of native coronary artery without angina pectoris

== ENCOUNTER → 2017-05-09 | Outpatient (CLI) | payer BC ==
[~2017-05-09] MED LIST changes: +[UNRECOGNIZED DRUG - CODE] PO
--- NOTE | 2017-05-10 07:46 | MAMMOGRAPHY REPORT ---
BILATERAL DIGITAL SCREENING MAMMOGRAM TOMOSYNTHESIS WITH CAD: 05/09/2017 CLINICAL HISTORY: Routine screening. Patient has no complaints. TECHNIQUE: Breast tomosynthesis in addition to standard 2D mammography was performed. Current study was also evaluated with a Computer Aided Detection (CAD) system. COMPARISON: Comparison is made to exams dated: 05/04/2016 mammogram, 05/03/2015 mammogram, 04/23/2014 mammogram, 04/22/2013 mammogram, 02/19/2012 mammogram, and 02/15/2011 mammogram - [facility]. BREAST COMPOSITION: The tissue of both breasts is heterogeneously dense, which may obscure small mas ses. FINDINGS: There are scattered bilateral punctate microcavitation calcifications, stable in each breas t. No suspicious mass, architectural distortion or cluster of new, suspicious microcalcifications is seen. IMPRESSION: ACR BI-RADS CATEGORY 1: NEGATIVE There is no mammographic evidence of malignancy. A 1 year screening mammogram is recommended. The pa tient will receive written notification of the results. Approximately 10% of breast cancers are not detected with mammography. A negative mammographic report should not delay biopsy if a clinically suggestive mass is present. Garima Alexis M.D. ay/:05/09/2017 12:22:55 Occupational Therapy Teacher: Charisma Portillo, [facility] letter sent: Normal 1/2 BI-RADS Code: ACR BI-RADS Category 1: Negative
== END | disposition home or self-care (01) ==
LOC: C.MAMM 08:26
PROVIDERS: ATTEND Obstetrics & Gynecology
DX: Z12.31 Encounter for screening mammogram for malignant neoplasm of breast (principal)

== ENCOUNTER → 2017-05-31 | Outpatient (CLI) | payer BC ==
[~2017-05-31] MED LIST changes: +ATOR10TA82 PO; +BCPILLS PO; +MULT-506 PO
[2017-05-31 09:33] LABS: BASO % 0.5 %; BASO ABS # 0.03 K/uL (0-0.2); COMPLETE YES; EOS % 3.3 %; HEMATOCRIT 40.8 % (37-47); IG% 0.2 %; LYMPH % 29.8 %; MEAN CELL VOLUME 94.7 fL (80-100); MEAN CORPUSCULAR HEMOGLOBIN 30.4 pg (25-34); MEAN CORPUSCULAR HGB CONC 32.1 g/dl (32-36); MEAN PLATELET VOLUME 8.8 fL (7.4-10.4); MONO % 6.3 %; NEUT % 59.9 %; PLATELET COUNT 345 K/uL (130-400); RED BLOOD COUNT 4.31 M/uL (4.2-5.4); WHITE BLOOD COUNT 6.38 K/uL (4.8-10.8)
[2017-05-31 10:13] LABS: BLOOD UREA NITROGEN 16 mg/dl (7-18); BUN/CREATININE RATIO 25.7 (10-20); CALCIUM 8.8 mg/dl (8.5-10.1); CARBON DIOXIDE 25 mmol/L (21-32); CHLORIDE 107 mmol/L (98-107); CREATININE 0.64 mg/dl (0.60-1.20); GLUCOSE 101 mg/dl (70-99); SODIUM 138 mmol/L (136-145)
== END | disposition home or self-care (01) ==
LOC: C.CPL 08:36
PROVIDERS: ATTEND Orthopaedic Surgery
DX: M25.512 Pain in left shoulder (principal)

== ENCOUNTER 2025-03-01 06:04 | Observation (INO) ==
--- NOTE | 2025-03-01 06:22 | Emergency Department Note ---
Impression & Plan Arm paresthesia, left, Blood glucose elevated ED Provider Note NAME: PITA FERGUSON AGE: 59 SEX: F : 1965 ARRIVES VIA: Walk-In INFORMANT: Patient ED PROVIDER(S): Souleymane Richardson DO CHIEF COMPLAINT: Left arm paresthesias HPI: Patient is a 59-year-old female with a past medical history of palpitations, SVT, anxiety, hyperlipidemia and Lyme disease who presents to the ER for paresthesias of her left arm. She notes she woke up around 530 and at that time she felt a chill go throughout her entire body. She then noticed that her left arm was tingling and felt numb but she can feel it. She adds that she does have a history of Lyme disease and notes that she has had Lyme disease for the past 3 years and has been treated for it. She denies any headache or chest pain. No shortness of breath. No belly pain. No nausea, vomiting or diarrhea. No dysuria, urgency or frequency. She notes that she was just sleeping on her back. The numbness/paresthesias is circumferentially throughout her entire left arm. She notes she will sometimes get in on her left leg. ADDITIONAL HISTORY OBTAINED: Per HPI Chronic Medical/Social Conditions Affecting Care: Per HPI PAST MEDICAL HISTORY:See Below PAST SURGICAL HISTORY:See Below FAMILY HISTORY:See Below SOCIAL HISTORY:See Below HOME MEDICATIONS:See Below ALLERGIES:See Below VITALS:See Below PHYSICAL EXAMINATION: GENERAL: Sitting up in bed, alert, well appearing, well nourished, no distress, non-toxic EYE EXAM: normal conjunctiva. PERRL and EOM's intact. OROPHARYNX: no exudate, no erythema, lips, buccal mucosa, and tongue normal and mucous membranes are moist NECK: supple, no nuchal rigidity, no adenopathy, non-tender LUNGS: Clear to auscultation. Normal chest wall mechanics HEART: no murmurs, S1 normal and S2 normal ABDOMEN: abdomen soft, non-tender, normo-active bowel sounds, no masses, no rebound or guarding. BACK: Back is symmetrical on inspection and there is no deformity, no midline tenderness, no CVA tenderness. UPPER EXTREMITIES: upper extremities are grossly normal. LOWER EXTREMITIES: No pitting edema. NEURO EXAM: Normal sensorium, cranial nerves II-XII intact, normal speech, no weakness of arms, no weakness of legs. No drift. Finger to nose intact. Gross sensation intact. MEDICAL DECISION MAKING: Patient is a 59-year-old female who presents ER for left arm paresthesias. IV was established and blood work was obtained. Labs showed no significant leukocytosis or anemia. BMP low with LFTs bilirubin and troponin was negative. Lipase was normal. Symptoms started around 5 when she woke up this morning. She went to bed around midnight last night. On exam she has no other focal deficits. CT angios of the head and neck were obtained and I discussed the case with [place]. They recommended admission and a full stroke workup in combination with with an MRI of the brain with contrast to look for MS. Patient was updated at bedside. Discussed case with the hospitalist Dr. Hurt for further evaluation management treatment. Imaging was delayed and CT of the cervical spine eventually resulted and suggested some narrowing of the cervical canal recommended MRI of the cervical spine. This resulted after admission due to issues with radiology. Consults/Care Managements Discussions: Per [facility] Triage Nursing notes reviewed. Limited review of prior medical records performed Vital Signs: reviewed and remarkable for HTN Differential diagnosis: Differential Diagnosis includes but is not limited to ischemic Stroke, hemorrhagic stroke, bells palsy, mass, neoplasm, migraine headache, seizure, subarachnoid hemorrhage, TIA, and transient global amnesia. ER treatment provided: See below Diagnostics interpreted by me include EKG and cardiac monitoring as listed below: -Cardiac Monitoring: An order was placed for continuous cardiac monitoring. The monitor shows a rate of 60 with sinus rhythm. -ECG: Sinus rhythm rate of 64 Normal axis No PVCs QTc 460 -Laboratory studies:Interpreted by me as stated above in MDM and shown below. Imaging studies: Xrays: As interpreted by me: Portable AP upright 1 view of the chest shows no focal infiltrate CTs show: CT of the head and cervical spine as well as angios as described above Procedures:none Critical Care: None Past Med/Surg History Problem List (Updated 03/01/25 @ 11:20 by Souleymane Richardson DO) Blood glucose elevated (Acute) Arm paresthesia, left (Acute) Arm paresthesia, left Diarrhea Inclusion cyst Benign positional vertigo Left shoulder pain Right ankle pain Post-Lyme disease syndrome Myalgia Joint stiffness Cervical radiculopathy Cervical disc disease Hand weakness Palpitations NE (obstructive sleep apnea) Routine gynecological examination Aching leg syndrome Allergic dermatitis Allergic rhinitis (Chronic) Anxiety (Chronic) Degeneration of cervical intervertebral disc (Chronic) Dysmenorrhea (Chronic) Hyperlipidemia (Chronic) Medical History Injury of left shoulder Excessive daytime sleepiness Tick bite Depression Renal cyst Family history of congestive heart failure Hx of vertigo History of lateral epicondylitis History of asthma Surgical History H/O oral surgery Family History Aunt Breast cancer Father Heart disease Laryngeal cancer Congestive heart failure Myocardial infarction Grandmother (Paternal) Ovarian cancer Denies family history of Prostate cancer Colorectal cancer Social History Smoking Status: Never smoker Second Hand Exposure: Yes (As a child. 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 How many Children do You have: 2 Feels Safe at Home: Yes Childhood Exposure to Second-Hand Smoke: Yes Diet: regular caffeine: Yes during the past year weight has: remained stable Dental Care, Regularly: Yes Physical Activity Frequency: 3-4 Times per Week Seatbelt Use: always Sunscreen Use: Yes Do you think of yourself as: straight/heterosexual Sexual Activity: has been sexually active within the last 12 months Gender Identity: Female Assistive Devices: Glasses Allergies Allergies Allergy/AdvReac Type Severity Reaction Status Date / Time bacitracin Allergy Unknown rash Verified 03/01/25 08:02 neomycin Allergy Unknown rash Verified 03/01/25 08:02 polymyxin B Allergy Unknown rash Verified 03/01/25 08:02 Sulfa (Sulfonamide Allergy Unknown BROKE OUT Verified 03/01/25 08:02 Antibiotics) WITH A RASH TAKING BACTRIM grass pollen Allergy Verified 03/01/25 08:02 house dust Allergy Verified 03/01/25 08:02 mold Allergy Verified 03/01/25 08:02 animal dander- cats Allergy Sneezing Uncoded 03/01/25 08:02 trees Allergy Sneezing Uncoded 03/01/25 08:02 Home Meds Home Medications Medication Instructions Recorded Confirmed multivitamin 1 tab PO DAILY 04/12/19 03/01/25 cholecalciferol (vitamin D3) 50 4,000 units PO DAILY 04/28/19 03/01/25 mcg (2,000 unit) capsule coenzyme Q10 50 mg capsule (Co 50 mg PO DAILY 07/25/21 03/01/25 Q-10) calcium carbonate 500 mg PO DAILY 03/01/25 03/01/25 lactobacillus combination no.4 3 3,000 mmu cells PO DAILY 03/01/25 03/01/25 billion cell capsule (Probiotic) Previous Rx's Medication Instructions Recorded escitalopram oxalate 20 mg tablet 20 mg PO DAILY #90 tabs 06/02/24 metoprolol succinate 25 mg 25 mg PO DAILY #90 tabs 06/02/24 tablet,extended release 24 hr buspirone 10 mg tablet 10 mg PO TID #180 tabs 07/01/24 atorvastatin 10 mg tablet 10 mg PO DAILY #90 tabs 11/07/24 CPAP Machine #1 [id number] 01/06/25 Results & Data (ED) Vital Signs Vital Signs - 24 hr 03/01/25 06:08 03/01/25 06:17 03/01/25 06:18 Temperature 36.5 C Temperature Source Temporal Artery Scan Pulse Rate 61 65 Pulse Rate [Apical] Pulse Rate from SpO2 Sensor Pulse Rhythm Respiratory Rate 18 Respiratory Effort / Characteristics Non-Labored Spontaneous Respiratory Depth Normal Respiratory Pattern Regular Blood Pressure 170/106 H 157/110 H Blood Pressure [Right Arm] Blood Pressure Mean 127 130 Blood Pressure Mean [Right Arm] Blood Pressure Position Sitting Blood Pressure Position [Right Arm] Pulse Oximetry 99 Oxygen Delivery Method Room Air Oxygen Flow Rate Sepsis Recent Fever Within 48 Hours No Sepsis New/Unexplained Change in Mental Status N/A Sepsis Action Taken by Nursing No Action Required 03/01/25 06:21 03/01/25 06:21 03/01/25 06:26 Temperature Temperature Source Pulse Rate 69 62 Pulse Rate [Apical] Pulse Rate from SpO2 Sensor 61 Pulse Rhythm Regular Respiratory Rate 16 22 Respiratory Effort / Characteristics Respiratory Depth Respiratory Pattern Blood Pressure 157/110 H Blood Pressure [Right Arm] Blood Pressure Mean 125 Blood Pressure Mean [Right Arm] Blood Pressure Position Blood Pressure Position [Right Arm] Pulse Oximetry 96 97 97 Oxygen Delivery Method Room Air Room Air Room Air Oxygen Flow Rate 0 Sepsis Recent Fever Within 48 Hours Sepsis New/Unexplained Change in Mental Status Sepsis Action Taken by Nursing 03/01/25 08:00 03/01/25 09:00 Temperature Temperature Source Pulse Rate Pulse Rate [Apical] 54 L 52 L Pulse Rate from SpO2 Sensor Pulse Rhythm Respiratory Rate 16 12 Respiratory Effort / Characteristics Non-Labored Spontaneous Non-Labored Spontaneous Respiratory Depth Normal Normal Respiratory Pattern Blood Pressure Blood Pressure [Right Arm] 127/83 121/87 Blood Pressure Mean Blood Pressure Mean [Right Arm] 97 98 Blood Pressure Position Blood Pressure Position [Right Arm] Semi-fowlers Semi-fowlers Pulse Oximetry 96 99 Oxygen Delivery Method Room Air Room Air Oxygen Flow Rate Sepsis Recent Fever Within 48 Hours Sepsis New/Unexplained Change in Mental Status Sepsis Action Taken by Nursing Laboratory Data 03/01/25 06:20 03/01/25 06:20 Lab Results 03/01/25 03/01/25 Range/Units 06:20 06:26 WBC 6.18 (4.8-10.8) K/ul RBC 4.59 (4.20-5.40) M/uL Hgb 14.2 (12.0-16.0) g/dl POC Hgb 14.6 (12.0-16.0) g/dl Hct 43.7 (37.0-47.0) % POC Hct 43 (37-47) % MCV 95.2 (80.0-100.0) fL MCH 30.9 (25.0-34.0) pg MCHC 32.5 (32.0-36.0) g/dL RDW Std Deviation 42.1 (36.4-46.3) fL RDW Coeff of Arsen 12.0 (11.5-14.5) % Plt Count 295 (130-400) K/uL MPV 9.0 L (9.4-12.4) fL Immature Gran % (Auto) 0.3 % Neut % (Auto) 42.2 % Lymph % (Auto) 42.2 % Towns % (Auto) 9.1 % Eos % (Auto) 4.7 % Baso % (Auto) 1.5 % Neut # (Auto) 2.61 (1.40-6.50) K/uL Lymph # (Auto) 2.61 (1.20-3.40) K/uL Towns # (Auto) 0.56 (0.11-0.59) K/uL Eos # (Auto) 0.29 (0.00-0.50) K/uL Baso # (Auto) 0.09 (0.00-0.20) K/uL Immature Gran # (Auto) 0.02 (0.01-0.20) K/uL POC Sodium 141 (135-144) mmol/L Sodium 141 (136-145) mmol/L POC Potassium 3.8 (3.3-5.0) mmol/L Potassium 3.8 (3.5-5.1) mmol/L POC Chloride 103 (101-112) mmol/L Chloride 103 (98-107) mmol/L Carbon Dioxide 32 (21-32) mmol/L POC Total CO2 28 (24-31) mmol/L Anion Gap 6 (3-11) POC Anion Gap 15.0 L (16-25) mmol/L POC BUN 18 (7-18) mg/dl BUN 18 (6-23) mg/dl Creatinine 0.63 (0.6-1.2) mg/dl POC Creatinine 0.7 (0.6-1.3) mg/dl Est Cr Clr Drug Dosing 108.0 ml/min eGFR 103.40 BUN/Creatinine Ratio 28.6 H (10-20) Glucose 108 H (70-99(Fasting)) mg/dl POC Glucose (other) 110 H (70-99) mg/dl Calcium 9.2 (8.6-10.3) mg/dl POC Ioniz Calcium Avelino 1.23 (1.12-1.32) mmol/l Total Bilirubin 0.2 (0.2-1.0) mg/dl AST 18 (13-39) U/L ALT 14 (7-52) U/L Alkaline Phosphatase 76 (34-104) U/L Troponin I High Sens < 2.3 (0-14) pg/ml Total Protein 7.3 (6.0-8.3) gm/dl Albumin 4.6 (3.4-5.0) gm/dl Globulin 2.7 (2.5-4.0) gm/dl Albumin/Globulin Ratio 1.7 (0.9-2) Lipase 49 (11-82) U/L Administered Medications Discontinued Medications Sodium Chloride (Nss) 1,000 mls @ 999 mls/hr IV .Q1H1M ONE Stop: 03/01/25 07:18 Last Admin: 03/01/25 06:49 Dose: 999 mls/hr Documented By: Infusion: 03/01/25 06:49 Dose: Infused Documented By: Admin: 03/01/25 06:25 Dose: 999 mls/hr Documented By: KENNA Ioversol (Optiray 320 125ml) 120 ml IV ONCE ONE Stop: 03/01/25 06:41 Last Admin: 03/01/25 06:40 Dose: 120 ml Documented By: BRBob Imaging Data Radiologist's Impression: Chest X-Ray 03/01/25 06:18 Exam(s): XR CXR 1 VIEW EXAM: XR Chest, 1 View CLINICAL HISTORY: Chest Pain, nonspecific. TECHNIQUE: Frontal view of the chest. COMPARISON: Chest radiograph 07/31/2021 FINDINGS: Lungs: Unremarkable. No consolidation. Pleural space: Unremarkable. No pneumothorax. Heart: Unremarkable. No cardiomegaly. Mediastinum: Unremarkable. Normal mediastinal contour. Bones/joints: There are degenerative changes of the spine. No acute fracture. IMPRESSION: No acute findings in the chest. Electronically signed by: Albania Regalado MD 03/01/25 07:52 AM Head CTA 03/01/25 06:18 EXAM: CT angio head wo/w CLINICAL HISTORY: Left arm numbness. TECHNIQUE: Axial CT angiography of the head was done with and without contrast and sagittal and coronal reformats with MIP reconstructions. One of these 3D techniques was utilized: Maximum Intensity Pixel (MIP), 3D Reconstructed Images, Volume Rendered Images, Surface Shaded Rendering. One of the following dose reduction techniques were utilized for this exam: Automated exposure control, adjustment of the mA and/or kV according to patient size, and use of iterative reconstruction. COMPARISON: None. FINDINGS: Intracranial Arteries: The intracranial portions of the internal carotid arteries, anterior cerebral arteries, middle cerebral arteries, posterior cerebral arteries, basilar artery, and vertebral arteries are well-opacified. No evidence of aneurysm, stenosis, or occlusion. No significant atherosclerotic changes. [place]: The [place] is complete. Normal caliber of the communicating arteries. No vascular malformations or aneurysms. Venous Structures: Normal opacification of the major dural venous sinuses. A focal filling defect in the posterior superior sagittal sinus, suggests an arachnoid granulation. No evidence of venous sinus thrombosis. Brain Parenchyma: Normal attenuation of the cerebral hemispheres, cerebellum, and brainstem. No evidence of acute infarct, hemorrhage, or mass effect. Ventricular System: Ventricles are normal in size and configuration. No evidence of hydrocephalus or ventricular enlargement. Skull and Meninges: Normal appearance of the skull. No evidence of meningeal enhancement or thickening Mucosal thickening of the left maxillary sinus with a few hyperattenuating foci within it could be due to fungal infection or chronic sinusitis Orbits: Normal appearance of the globes, optic nerves, and extraocular muscles. No evidence of orbital masses or abnormal signal. IMPRESSION: 1. No evidence of significant vascular abnormalities. 2. Mucosal thickening of the left maxillary sinus with a few hyperattenuating foci within it could be due to fungal infection or chronic sinusitis Electronically signed by Thang Hernandez 03-01-2025 07:35 AM Neck CTA 03/01/25 06:18 Exam(s): CTA NECK With Contrast EXAM: CT Angiography Neck With Intravenous Contrast CLINICAL HISTORY: 1331 TECHNIQUE: Routine carotid CT angiography protocol was performed with intravenous contrast. NASCET criteria using the distal ICAs for comparison were used for evaluation of stenoses. MIPS images were created and reviewed. CTDI is 12 mGy and DLP is 396.37 mGy-cm. Automated exposure control was utilized for the study. A dose lowering technique was utilized adhering to the principles of ALARA. MIP reconstructed images were created and reviewed. CONTRAST: 35 COMPARISON: None. FINDINGS: VASCULATURE: Right common carotid artery: Unremarkable. No occlusion or significant stenosis. No dissection. Right internal carotid artery: Unremarkable. Extracranial segment is patent with no occlusion or significant stenosis. No dissection. Right external carotid artery: Unremarkable. No occlusion. Right vertebral artery: Unremarkable. No occlusion or significant stenosis. No dissection. Left common carotid artery: Unremarkable. No occlusion or significant stenosis. No dissection. Left internal carotid artery: Unremarkable. Extracranial segment is patent with no occlusion or significant stenosis. No dissection. Left external carotid artery: Unremarkable. No occlusion. Left vertebral artery: Unremarkable. No occlusion or significant stenosis. No dissection. NECK: Bones/joints: There are degenerative changes of the spine. No acute fracture. Soft tissues: Unremarkable. Lung apices: Clear. CAROTID STENOSIS REFERENCE USING NASCET CRITERIA: % ICA stenosis = (1 - narrowest ICA diameter/diameter of distal cervical ICA) x 100. Mild - <50% stenosis. Moderate - 50-69% stenosis. Severe - 70-94% stenosis. Near occlusion - 95-99% stenosis. Occluded - 100% stenosis. IMPRESSION: No acute findings of the arteries of the neck. Electronically signed by: Albania Regalado MD 03/01/25 08:[address] 03/01/25 06:24 Exam(s): CT C SPINE EXAM: CT Cervical Spine Without Intravenous Contrast CLINICAL HISTORY: Left Pain. TECHNIQUE: Axial computed tomography images of the cervical spine without intravenous contrast. CTDI is 19.57 mGy and DLP is 369.54 mGy-cm. Automated exposure control was utilized for the study. A dose lowering technique was utilized adhering to the principles of ALARA. COMPARISON: Cervical spine radiographs 11/04/2021 muscular old neck FINDINGS: Vertebrae: Degenerative changes of the cervical spine are noted. No acute fracture. No malalignment. Discs/spinal canal/neural foramina: There are marked calcifications of the posterior longitudinal ligament resulting in mild stenosis of the spinal canal. No acute findings. No significant spinal canal stenosis. No significant bony neuroforaminal stenosis. Soft tissues: Unremarkable. IMPRESSION: 1. No acute finding of the cervical spine. 2. There are marked calcifications of the posterior longitudinal ligament resulting in mild stenosis of the spinal canal. Consider further evaluation with MRI, this can be performed on a nonemergent basis as clinically indicated. Electronically signed by: Albania Regalado MD 03/01/25 08:31 AM Discharge Plan Visit Data Chief Complaint: Cardiac Assessment Stated Complaint: PINCHING IN ARM, NUMB ED Provider: Souleymane Richardson Discharge Problem: Arm paresthesia, left, Blood glucose elevated Condition: Fair Forms Stand Alone Forms: [facility] [employer] Prescriptions Prescriptions: No Action escitalopram oxalate 20 mg tablet 20 mg PO DAILY Qty: 90 3RF metoprolol succinate 25 mg tablet extended release 24 hr 25 mg PO DAILY Qty: 90 3RF buspirone 10 mg tablet 10 mg PO TID Qty: 180 3RF atorvastatin 10 mg tablet 10 mg PO DAILY Qty: 90 3RF multivitamin tablet 1 tab PO DAILY cholecalciferol (vitamin D3) 2,000 unit capsule 4,000 units PO DAILY (DME) CPAP Machine Misc See Rx Instructions .Route Qty: 1 0RF Rx Instructions: Auto CPAP 5-20 cm water pressure with heated humidification, tubing, and supplies. AARON: 99+ years. coenzyme Q10 [Co Q-10] 50 mg Capsule 50 mg PO DAILY calcium carbonate [Calcium 500] 500 mg calcium (1,250 mg) Tablet 500 mg PO DAILY Probiotic 3 billion cell Capsule 3,000 mmu cells PO DAILY Rx Instructions: administer with a meal Referrals Referrals: Vero Montano CRNP [Primary Care Provider] -
[2025-03-01] MEDS: SODIUM CHLORIDE 0.9% 1,000 ML IV ONE (06:25)
[2025-03-01] MEDS: OPTIRAY 320 125ml IV ONE (06:40)
[2025-03-01 06:51] LABS: Hematocrit (blood only) 43.7 % (37.0-47.0); Hemoglobin 14.2 g/dl (12.0-16.0); Immature Granulocytes # (auto) 0.02 K/uL (0.01-0.20); Immature Granulocytes % (auto) 0.3 %; Mean Corpuscular Hemoglobin 30.9 pg (25.0-34.0); Mean Corpuscular Volume 95.2 fL (80.0-100.0); Platelet Count 295 K/uL (130-400); RDW Standard Deviation 42.1 fL (36.4-46.3); Red Blood Count 4.59 M/uL (4.20-5.40); White Blood Count 6.18 K/ul (4.8-10.8)
[2025-03-01 07:22] LABS: Alanine Aminotransferase 14 U/L (7-52); Albumin Globulin Ratio 1.7 (0.9-2); Alkaline Phosphatase 76 U/L (34-104); Anion Gap 6 (3-11); Bilirubin,Total 0.2 mg/dl (0.2-1.0); Blood Urea Nitrogen 18 mg/dl (6-23); Calcium 9.2 mg/dl (8.6-10.3); Carbon Dioxide 32 mmol/L (21-32); Chloride 103 mmol/L (98-107); Creatinine Clr Calc Pharmacy 108.0 ml/min; Globulin 2.7 gm/dl (2.5-4.0); Glucose 108 mg/dl (70-99(Fasting)); Lipase 49 U/L (11-82); Potassium 3.8 mmol/L (3.5-5.1); Sodium 141 mmol/L (136-145); Total Protein 7.3 gm/dl (6.0-8.3)
--- NOTE | 2025-03-01 07:35 | CT Scan Report ---
EXAM: CT angio head wo/w CLINICAL HISTORY: Left arm numbness. TECHNIQUE: Axial CT angiography of the head was done with and without contrast and sagittal and coronal reformats with MIP reconstructions. One of these 3D techniques was utilized: Maximum Intensity Pixel (MIP), 3D Reconstructed Images, Volume Rendered Images, Surface Shaded Rendering. One of the following dose reduction techniques were utilized for this exam: Automated exposure control, adjustment of the mA and/or kV according to patient size, and use of iterative reconstruction. COMPARISON: None. FINDINGS: Intracranial Arteries: The intracranial portions of the internal carotid arteries, anterior cerebral arteries, middle cerebral arteries, posterior cerebral arteries, basilar artery, and vertebral arteries are well-opacified. No evidence of aneurysm, stenosis, or occlusion. No significant atherosclerotic changes. [place]: The [place] is complete. Normal caliber of the communicating arteries. No vascular malformations or aneurysms. Venous Structures: Normal opacification of the major dural venous sinuses. A focal filling defect in the posterior superior sagittal sinus, suggests an arachnoid granulation. No evidence of venous sinus thrombosis. Brain Parenchyma: Normal attenuation of the cerebral hemispheres, cerebellum, and brainstem. No evidence of acute infarct, hemorrhage, or mass effect. Ventricular System: Ventricles are normal in size and configuration. No evidence of hydrocephalus or ventricular enlargement. Skull and Meninges: Normal appearance of the skull. No evidence of meningeal enhancement or thickening Mucosal thickening of the left maxillary sinus with a few hyperattenuating foci within it could be due to fungal infection or chronic sinusitis Orbits: Normal appearance of the globes, optic nerves, and extraocular muscles. No evidence of orbital masses or abnormal signal. IMPRESSION: 1. No evidence of significant vascular abnormalities. 2. Mucosal thickening of the left maxillary sinus with a few hyperattenuating foci within it could be due to fungal infection or chronic sinusitis Electronically signed by Thang Hernandez 03-01-2025 07:35 AM
--- NOTE | 2025-03-01 07:53 | XRay Report ---
Exam(s): XR CXR 1 VIEW EXAM: XR Chest, 1 View CLINICAL HISTORY: Chest Pain, nonspecific. TECHNIQUE: Frontal view of the chest. COMPARISON: Chest radiograph 07/31/2021 FINDINGS: Lungs: Unremarkable. No consolidation. Pleural space: Unremarkable. No pneumothorax. Heart: Unremarkable. No cardiomegaly. Mediastinum: Unremarkable. Normal mediastinal contour. Bones/joints: There are degenerative changes of the spine. No acute fracture. IMPRESSION: No acute findings in the chest. Electronically signed by: Albania Regalado MD 03/01/25 07:52 AM
--- NOTE | 2025-03-01 08:31 | CT Scan Report ---
Exam(s): CTA NECK With Contrast EXAM: CT Angiography Neck With Intravenous Contrast CLINICAL HISTORY: 1331 TECHNIQUE: Routine carotid CT angiography protocol was performed with intravenous contrast. NASCET criteria using the distal ICAs for comparison were used for evaluation of stenoses. MIPS images were created and reviewed. CTDI is 12 mGy and DLP is 396.37 mGy-cm. Automated exposure control was utilized for the study. A dose lowering technique was utilized adhering to the principles of ALARA. MIP reconstructed images were created and reviewed. CONTRAST: 35 COMPARISON: None. FINDINGS: VASCULATURE: Right common carotid artery: Unremarkable. No occlusion or significant stenosis. No dissection. Right internal carotid artery: Unremarkable. Extracranial segment is patent with no occlusion or significant stenosis. No dissection. Right external carotid artery: Unremarkable. No occlusion. Right vertebral artery: Unremarkable. No occlusion or significant stenosis. No dissection. Left common carotid artery: Unremarkable. No occlusion or significant stenosis. No dissection. Left internal carotid artery: Unremarkable. Extracranial segment is patent with no occlusion or significant stenosis. No dissection. Left external carotid artery: Unremarkable. No occlusion. Left vertebral artery: Unremarkable. No occlusion or significant stenosis. No dissection. NECK: Bones/joints: There are degenerative changes of the spine. No acute fracture. Soft tissues: Unremarkable. Lung apices: Clear. CAROTID STENOSIS REFERENCE USING NASCET CRITERIA: % ICA stenosis = (1 - narrowest ICA diameter/diameter of distal cervical ICA) x 100. Mild - <50% stenosis. Moderate - 50-69% stenosis. Severe - 70-94% stenosis. Near occlusion - 95-99% stenosis. Occluded - 100% stenosis. IMPRESSION: No acute findings of the arteries of the neck. Electronically signed by: Albania Regalado MD 03/01/25 08:29 AM
--- NOTE | 2025-03-01 08:32 | CT Scan Report ---
Exam(s): CT C SPINE EXAM: CT Cervical Spine Without Intravenous Contrast CLINICAL HISTORY: Left Pain. TECHNIQUE: Axial computed tomography images of the cervical spine without intravenous contrast. CTDI is 19.57 mGy and DLP is 369.54 mGy-cm. Automated exposure control was utilized for the study. A dose lowering technique was utilized adhering to the principles of ALARA. COMPARISON: Cervical spine radiographs 11/04/2021 muscular old neck FINDINGS: Vertebrae: Degenerative changes of the cervical spine are noted. No acute fracture. No malalignment. Discs/spinal canal/neural foramina: There are marked calcifications of the posterior longitudinal ligament resulting in mild stenosis of the spinal canal. No acute findings. No significant spinal canal stenosis. No significant bony neuroforaminal stenosis. Soft tissues: Unremarkable. IMPRESSION: 1. No acute finding of the cervical spine. 2. There are marked calcifications of the posterior longitudinal ligament resulting in mild stenosis of the spinal canal. Consider further evaluation with MRI, this can be performed on a nonemergent basis as clinically indicated. Electronically signed by: Albania Regalado MD 03/01/25 08:31 AM
--- NOTE | 2025-03-01 08:46 | History & Physical Report ---
Date of Service March 01, 2025 Assessment & Plan (1) Arm paresthesia, left: Plan: Head CT scan on admission was normal. No significant findings at that on examination. Brain MRI scan is pending. Observation for now (2) Cervical disc disease: Plan: Current symptoms may be related to underlying cervical disc disease. C-spine CT scan ordered and pending (3) Hyperlipidemia: Plan: Stable. Continue current medical management (4) Post-Lyme disease syndrome: Plan: She states she has had Lyme disease in the past. Highly unlikely this is playing a role in her current symptoms. Plan Observation. Await MRI findings and cervical spine CT findings. Supportive care History of Present Illness Chief Complaint: Left arm paresthesia Primary Care Provider: MARSHA Patel 59-year-old white female who awoke this morning with left arm paresthesia. She has no motor deficits. Head CT scan in the ED was unremarkable. Examination is unremarkable at this time. She is alert and oriented. is at the bedside. She denies chest pain shortness of breath or palpitations. She states that she has had some trouble with "disks in her neck" in the past. Brain MRI scan and cervical spine CT scan ordered and pending. She is placed in observation for further evaluation and management Allergies Allergy/AdvReac Type Severity Reaction Status Date / Time bacitracin Allergy Unknown rash Verified 03/01/25 08:02 neomycin Allergy Unknown rash Verified 03/01/25 08:02 polymyxin B Allergy Unknown rash Verified 03/01/25 08:02 Sulfa (Sulfonamide Allergy Unknown BROKE OUT Verified 03/01/25 08:02 Antibiotics) WITH A RASH TAKING BACTRIM grass pollen Allergy Verified 03/01/25 08:02 house dust Allergy Verified 03/01/25 08:02 mold Allergy Verified 03/01/25 08:02 animal dander- cats Allergy Sneezing Uncoded 03/01/25 08:02 trees Allergy Sneezing Uncoded 03/01/25 08:02 Home Medications Medication Instructions Recorded Confirmed Type multivitamin 1 tab PO DAILY 04/12/19 03/01/25 History cholecalciferol (vitamin D3) 50 4,000 units PO DAILY 04/28/19 03/01/25 History mcg (2,000 unit) capsule coenzyme Q10 50 mg capsule (Co 50 mg PO DAILY 07/25/21 03/01/25 History Q-10) escitalopram oxalate 20 mg tablet 20 mg PO DAILY #90 tabs 06/02/24 03/01/25 Rx metoprolol succinate 25 mg 25 mg PO DAILY #90 tabs 06/02/24 03/01/25 Rx tablet,extended release 24 hr buspirone 10 mg tablet 10 mg PO TID #180 tabs 07/01/24 03/01/25 Rx atorvastatin 10 mg tablet 10 mg PO DAILY #90 tabs 11/07/24 03/01/25 Rx CPAP Machine #1 ea 01/06/25 01/20/25 Rx calcium carbonate 500 mg PO DAILY 03/01/25 03/01/25 History lactobacillus combination no.4 3 3,000 mmu cells PO DAILY 03/01/25 03/01/25 History billion cell capsule (Probiotic) Past Med/Surg History Problem List (Updated 03/01/25 @ 08:45 by Iain Hurt MD) Arm paresthesia, left Diarrhea Inclusion cyst Benign positional vertigo Left shoulder pain Right ankle pain Post-Lyme disease syndrome Myalgia Joint stiffness Cervical radiculopathy Cervical disc disease Hand weakness Palpitations NE (obstructive sleep apnea) Routine gynecological examination Aching leg syndrome Allergic dermatitis Allergic rhinitis (Chronic) Anxiety (Chronic) Degeneration of cervical intervertebral disc (Chronic) Dysmenorrhea (Chronic) Hyperlipidemia (Chronic) Medical History Injury of left shoulder Excessive daytime sleepiness Tick bite Depression Renal cyst Family history of congestive heart failure Hx of vertigo History of lateral epicondylitis History of asthma Surgical History H/O oral surgery Family History Aunt Breast cancer Father Heart disease Laryngeal cancer Congestive heart failure Myocardial infarction Grandmother (Paternal) Ovarian cancer Denies family history of Prostate cancer Colorectal cancer Social History Smoking Status: Never smoker Second Hand Exposure: Yes (As a child. ); Do You Dip or Chew Tobacco: No; Hx Alcohol Use: No Hx Substance Use: No Preferred Language: Bulgarian Communication Ability: Effective Visual Impairment: Limited Hearing Ability: Normal Historiographer Required: No Beliefs That Will Affect Care: None marital status: Current Living Situation: Spouse current occupational status: employed current occupation: [employer]. How many Children do You have: 2 Feels Safe at Home: Yes Childhood Exposure to Second-Hand Smoke: Yes Diet: regular caffeine: Yes during the past year weight has: remained stable Dental Care, Regularly: Yes Physical Activity Frequency: 3-4 Times per Week Seatbelt Use: always Sunscreen Use: Yes Do you think of yourself as: straight/heterosexual Sexual Activity: has been sexually active within the last 12 months Gender Identity: Female Assistive Devices: Glasses Review of Systems 2 Review of Systems: Constitutionalno fever or chills ENTno blurred vision, no double vision, no epistaxis, no sore throat Respiratoryno cough, no wheezing, no shortness of breath Cardiacno palpitations, no chest pain, no syncope Latrell nausea, vomiting, diarrhea, melena, hematochezia GUno urinary retention, no urinary incontinence, no dysuria, no hematuria Musculoskeletalno joint pain, no muscle tenderness Skinno bruising, no rashes, no pruritus Neurono isolated weakness. Awoke with left arm paresthesia this morning Psychno depression, no anxiety Physical Exam 2 Physical Exam: General-alert and oriented x3, no fever, no chills HEENT-head atraumatic and normocephalic, pupils equal and reactive to light, extraocular muscles intact Neck-no lymphadenopathy or thyromegaly, trachea midline Chest-clear to auscultation. No rales, wheezing or rhonchi Cardiac-regular rate and rhythm, normal S1 and S2 Abdomen-normal bowel sounds, no hepatosplenomegaly Extremities-no cyanosis, clubbing, or edema Neuro-cranial nerves II through XII intact, motor and sensory function within normal limits, strength symmetrical, no focal deficits Psych-normal affect, normal mood Results & Data Results & Data Vital Signs (Past 12 Hours) Vital Signs Temp Pulse Resp BP Pulse Ox O2 Del Method O2 Flow Rate 03/01/25 06:26 97 Room Air 0 03/01/25 06:21 62 22 157/110 H 97 Room Air 03/01/25 06:21 69 16 96 Room Air 03/01/25 06:18 157/110 H 03/01/25 06:17 65 03/01/25 06:08 36.5 C 61 18 170/106 H 99 Room Air Laboratory Results 03/01/25 06:20 03/01/25 06:20 Code Status & VTE Plan Code Status Full code PG Care Time/CCT Total # of Minutes Spent Total Time Spent with Patient: Total time spent is greater than 50% in coordination of care (as documented) at patient's floor/unit and/or counseling patient: Coding Level of Care Code 37425 INT INP/OBS CARE 3/75MIN Diagnoses Arm paresthesia, left R20.2 Cervical disc disease M50.90 Hyperlipidemia E78.5 Hyperlipidemia type: unspecified Post-Lyme disease syndrome B94.8 (3) Hyperlipidemia Hyperlipidemia type: unspecified Qualified Code(s): E78.5 - Hyperlipidemia, unspecified
[2025-03-01] MEDS ORDERED: ONDANSETRON INJ 2 MG/ML 2 ML VIAL IV PRN (11:51)
[2025-03-01] MEDS: busPIRone 5 MG TAB PO SCH (12:53)
[2025-03-01] MEDS: ATORVASTATIN 10 MG TAB PO SCH ×2 (12:54→20:54)
[2025-03-01] MEDS: ESCITALOPRAM OXALATE 20 MG TAB PO SCH ×2 (12:55→20:53)
[2025-03-01] MEDS: CALCIUM CARBONATE 1250MG TAB PO SCH (12:55)
[2025-03-01] MEDS: ADVANCED PROBIOTIC 625 MG CAPSULE PO SCH (12:55)
[2025-03-01] MEDS: METOPROLOL SUCC 25MG EXT REL TAB PO SCH ×2 (12:55→20:53)
[2025-03-01] MEDS: MULTIVITAMIN TAB PO SCH (12:55)
[2025-03-01] MEDS: CHOLECALCIFEROL 25 MCG (1000 UNITS) TAB PO SCH (12:55)
[2025-03-01] MEDS: GADOBUTROL 65ML VIAL IV ONE (17:19)
[2025-03-01] MEDS: Nursing to Pharmacy Communication SCH (17:28)
--- NOTE | 2025-03-01 18:27 | Magnetic Resonance Report ---
EXAM: MR cervical spine wo con CLINICAL HISTORY: LUE paresthesia, cervical stenosis TECHNIQUE: MRI of the cervical spine was performed. Sequences obtained include multiple sequences. 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 Normal alignment of the cervical spine without evidence of fracture or subluxation. Vertebral Bodies and Intervertebral Discs: Degenerative changes of the cervical spine with marginal bone hypertrophy of the vertebral endplates and reduced disc hydration, denoting dissecation. Normal vertebral body height and alignment. [id number] analysis: C2-C3: There is no significant disc pathology. Normal morphology of the ligamentum flava. No arthropathy of the uncovertebral and zygapophyseal joints. No significant spinal canal stenosis C3-C4: There is a focal central disc protrusion, measuring 2.5mm, causing mild bilateral foraminal narrowing, with no significant nerve root compression. Normal morphology of the ligamentum flava. No arthropathy of the uncovertebral and zygapophyseal joints. No significant spinal canal stenosis C4-C5: There is a focal central disc protrusion/osteophyte complex, measuring 5.1mm, along with mild bilateral uncovertebral arthropathy, causing bilateral moderate foraminal narrowing and mildly compressing the exiting nerve roots more on the right side. Normal morphology of the ligamentum flava. No arthropathy of the zygapophyseal joints. Mild significant spinal canal stenosis C5-C6: There is a diffuse disc bulge with wide-based focal central protrusion/osteophyte complex, measuring 5.6mm, along with uncovertebral arthropathy, causing bilateral moderate foraminal stenosis and resulting in mild impengiment of the exiting nerve roots. Normal morphology of the ligamentum flava. No arthropathy of the zygapophyseal joints. Mild spinal canal stenosis. C6-7: There's a diffuse disc bulge with left preponderance, measuring 2.8mm, along with bilateral uncovertebral arthropathy, causing bilateral moderate to severe foraminal stenosis and resulting in compression of the exiting nerve roots, more on the left. Normal morphology of the ligamentum flava. No arthropathy of the zygapophyseal joints. No significant spinal canal stenosis. C7-T1: There's a left paracentral disc extrusion, measuring 4.7mm, with minimal caudal migration along with bilateral uncovertebral arthropathy, causing mild right and severe left foraminal stenosis and resulting in compression of the left exiting nerve roots, more on the left. Normal morphology of the ligamentum flava. No arthropathy of the zygapophyseal joints. Mild significant spinal canal stenosis. Spinal Cord and Nerve Roots: Spinal cord demonstrates normal signal intensity and caliber. No evidence of cord compression or intradural pathology. Soft Tissues: Paraspinal soft tissues appear normal without evidence of abnormal signal intensity or mass lesions. IMPRESSION: 1. Straightening of the cervical curvature, denoting muscle spasm. 2. Degenerative changes with multiple disc bulges/osteophyte complexes with multilevel uncovertebral arthropathies, causing varying degrees of bilateral moderate to severe foraminal stenosis more evident at C5-6 and C7-T1 levels as described above Electronically signed by Thang Hernandez 03-01-2025 6:23 PM
--- NOTE | 2025-03-01 18:27 | Magnetic Resonance Report ---
EXAM: MR brain wo/w con CLINICAL HISTORY: LUE paresthesia TECHNIQUE: MRI of the brain was performed with and without intravenous contrast administration ( 8.8ml Gadavist). Sequences obtained include pre-contrast and post-contrast T1-weighted, T2-weighted, FLAIR (Fluid-Attenuated Inversion Recovery), DWI (Diffusion-Weighted Imaging), and ADC (Apparent Diffusion Coefficient) sequences. COMPARISON: CT 03-01-2025 FINDINGS: Brain Parenchyma: No evidence of acute infarction or hemorrhage. Batres-white matter differentiation is preserved. No abnormal signal intensity lesions identified. [id number].[id number] Bilateral frontal few small subcortical white matter foci of high T2 /OBX.5.1.1OBX.5.1.2 FLAIR WI signal./OBX.5.1.2/OBX.5.1 Post-Contrast Findings: No abnormal enhancement of the brain parenchyma or meninges. Ventricles and Sulci: Ventricular system is within normal limits without evidence of hydrocephalus. Sulci and cisternal spaces are age-appropriate. Brainstem and Cerebellum: Normal appearance of the brainstem and cerebellum without focal lesions or abnormal enhancement. Vessels: Intracranial vessels appear normal without evidence of vascular malformations or aneurysms. Skull and Calvarium: No evidence of skull vault lesions or abnormal marrow signal within the calvarium. Hyperostosis frontalis interna (Incidental finding). Left maxillary sinusitis. IMPRESSION: 1. No evidence of acute intracranial pathology or abnormal contrast enhancement. 2. Bilateral frontal few small chronic ischemic foci. 3. Left maxillary sinusitis. 4. No interval changes. Electronically signed by Thang Hernandez 03-01-2025 6:24 PM
[2025-03-01 19:53] VITALS: RESP 20
[2025-03-02] MEDS: ACETAMINOPHEN 325 MG TAB PO PRN (07:38)
--- NOTE | 2025-03-02 08:13 | Electrocardiogram Report ---
Test Reason : Blood Pressure : */* mmHG Vent. Rate : 64 BPM Atrial Rate : 64 BPM P-R Int : 150 ms QRS Dur : 70 ms QT Int : 446 ms P-R-T Axes : 24 21 46 degrees QTcB Int : 460 ms Normal sinus rhythm Normal ECG When compared with ECG of 31-Jul-2021 11:18, QT has lengthened Confirmed by Kirstin Hawkins (Kurt) on 03/02/2025 8:13:06 AM Referred By: REFERRED SELF Confirmed By: Kirstin Hawkins
[2025-03-02 08:28] VITALS: BP 129/86; TEMP 98.1; O2SAT 95
[2025-03-02 09:30] VITALS: PULSE 62
--- NOTE | 2025-03-02 12:17 | Discharge Summary ---
Discharge Summary Date of Service March 02, 2025 Principal Dx & Hospital Course #1 = Principal Diagnosis (1) Arm paresthesia, left: Hospital course Lilo Simons is a 59 yo woman with PMH of lyme disease, b12 deficiency, she has strong family hx of heart disease. her ID specialist is located in [place]. on 03/01/2025, she's came to our hospital with left upper extremity numbess and tingling that last 1-2 hours. and admitted for TIA evaluation her CTA is negative for large vessal stenosis or MCA infarct her b12 level on this admission is 218 she's s/p brain MRI and cervical spine MRI. brain MRI negative for stroke, but found maxillary sinusitis her cervical spine MRI found severe foramenal stenosis in betty C5-C6 and C7-T1 region on 03/02/2025, her left arm numbess resolved; she was dc home with aspirin 81mg, and her lipitor dose increased from 10mg to 20mg. we discusse that she should work with her PCP about adjusting her coQ supplement dose she was dc home on aspirin, lipitor 20mg, nasal saline for sinusitis (2) Cervical disc disease: Current symptoms may be related to underlying cervical disc disease. C-spine CT scan ordered and pending (3) Hyperlipidemia: Stable. Continue current medical management (4) Post-Lyme disease syndrome: She states she has had Lyme disease in the past. Highly unlikely this is playing a role in her current symptoms. Plan Observation. Await MRI findings and cervical spine CT findings. Supportive care Notes For Next Care Provider consider intramuscular b12 for next 2-3 months aspirin and lipitor 20mg can increase lipitor dose to 40mg f/u with cardiology for event monitor (that been discussed with patient) Medication Changes From Visit added aspirin lipitor dose increased to 20mg. Admission HPI Per Admitting Provider 59-year-old white female who awoke this morning with left arm paresthesia. She has no motor deficits. Head CT scan in the ED was unremarkable. Examination is unremarkable at this time. She is alert and oriented. is at the bedside. She denies chest pain shortness of breath or palpitations. She states that she has had some trouble with "disks in her neck" in the past. Brain MRI scan and cervical spine CT scan ordered and pending. She is placed in observation for further evaluation and management Discharge Exam VITALS: Reviewed. WEIGHT/BMI reviewed. GEN: Healthy appearing, well-developed, NAD. PSYCH: Good Judgment. AOx3. Normal memory, mood, and affect. HEENT -Head: NC/AT; -Eyes: PERRL, EOMI. No discharge or redness; Neuro: AAox3; no pronator drift; no slurred speech; normal sensation to soft touch in both side normal finger to nose test; able to hold feet against gravity for 5 seconds.. no drift NECK: Supple, with no masses. CV: RRR, no m/r/g. LUNGS: CTAB, no w/r/c. ABD: Soft, NT/ND, NBS, no masses or organomegaly. : N/A SKIN: Warm, well perfused. No skin rashes or abnormal lesions. MSK: No deformities, Normal gait. EXT: No clubbing, cyanosis, or edema. Discharge Plan Discharge Items Patient Disposition: Home - Self-Care Reason For Visit: LEFT ARM PARESTHESIA Discharge Diagnosis: TIA Condition on Discharge: Fair Activity: Resume your previous activity Non-emergency contact: Primary Care Provider Call non-emergency contact if: your symptoms worsen and you have a fever Follow-up/Referrals: Vero Montano CRNP [Primary Care Provider] - 03/05/25 3:30 pm (Hospital follow up on March 05 at 3:30 pm.) Diet: Low Fat Addtl Attending Provider Instructions: follow up with cardiology to have event monitor return to ED for evaluation if you have worsening slurred speech, weakness, blurry vision. confusion Pending Studies at Discharge: Yes Studies:: event monitor Stand-Alone Forms: My [facility], Smoking Cessation Medications and DC Order Prescriptions: New atorvastatin [Lipitor] 20 mg tablet 20 mg PO HS 30 Days Qty: 30 1RF aspirin 81 mg tablet 81 mg PO DAILY 30 Days Qty: 30 0RF Saline Nasal 0.65 % aerosol,spray 1 spray intranasal TID 14 Days Qty: 44 0RF Continued escitalopram oxalate 20 mg tablet 20 mg PO DAILY Qty: 90 3RF metoprolol succinate 25 mg tablet extended release 24 hr 25 mg PO DAILY Qty: 90 3RF buspirone 10 mg tablet 10 mg PO TID Qty: 180 3RF multivitamin tablet 1 tab PO DAILY cholecalciferol (vitamin D3) 2,000 unit capsule 4,000 units PO DAILY (DME) CPAP Machine Misc See Rx Instructions .Route Qty: 1 0RF Rx Instructions: Auto CPAP 5-20 cm water pressure with heated humidification, tubing, and supplies. AARON: 99+ years. coenzyme Q10 [Co Q-10] 50 mg Capsule 50 mg PO DAILY calcium carbonate 500 mg calcium (1,250 mg) Tablet 500 mg PO DAILY Probiotic 3 billion cell Capsule 3,000 mmu cells PO DAILY Rx Instructions: administer with a meal Discontinued atorvastatin 10 mg tablet 10 mg PO DAILY Qty: 90 3RF Discharge Orders: Discharge Order (Routine); Ordered 03/02/25 Ordered By: Claudy Felder/Other Patient Handouts: What Is Event Monitoring?, TIA Dc Admission Data Admit Date/Time: 03/01/25 08:38 Attending Provider: Claudy Mary Admit Provider: Iain Hurt Primary Care Provider: Vero Montano Other Providers: Iain Hurt Other Interventions: Discharge Summary Assessment (RN) Last Done: 03/02/25 09:29 Hospital Stay Data Consultations 03/01/25 07:41 ED Decision to Admit Stat Diagnostic Imagining Performed 03/01/25 06:18 CT angio head wo/w Stat CT angio neck with con Stat 03/01/25 06:24 CT cervical spine wo con Stat 03/01/25 11:51 MRI Brain [MR brain wo/w con] Urgent 03/01/25 14:14 MRI Cervical [MR cervical spine wo con] Urgent Pending Results Patient Have Any Pending Studies at Discharge: Yes Discharge Instructions Given to Patient (Per Discharging Provider) follow up with cardiology to have event monitor return to ED for evaluation if you have worsening slurred speech, weakness, blurry vision. confusion Total Time Total Time Spent Total Time Spent (In Minutes): 35 Coding Level of Care Code 57521 INP/OBS DISCH >30 MIN Diagnoses Arm paresthesia, left R20.2 Cervical disc disease M50.90 Hyperlipidemia E78.5 Hyperlipidemia type: unspecified Post-Lyme disease syndrome B94.8 Time Spent (min) 35
--- NOTE | 2025-03-03 12:43 | Coding Query ---
CODING QUERY To promote full compliance with coding requirements relating to patient care, provider participation is requested in all cases of professor of oceanography uncertainty. Please assist us with the question(s) below: Coding Question(s): Physician's Response(s): Please clarify if TIA was ruled in or ruled out? still suspect TIA; no evidence of stroke (per brain MRI) Thank you Nette Potter Principal Diagnosis: "that condition established after study, to be chiefly responsible for occasioning the admission of the patient to the hospital for care." Co-Existing Principal Diagnosis: "when two or more diagnoses equally meet the criteria for principal diagnosis as determined by the circumstances of admission, diagnostic work up, and/or therapy provided, and the Alphabetic Index, Tabular List, or another coding guideline does not provide sequencing direction, any one of the diagnoses may be sequenced first." "When the physician has documented what appears to be a current diagnosis in the body of the record, but has not included the diagnosis in the final diagnostic statement, the physician should be asked whether the diagnosis should be added." (Source Coding Clinic 2 QTR90. p3-4) BLESSING
== END 2025-03-02 10:29 | disposition home or self-care (01) ==
LOC: SUATTDRO → ED 06:04 → EDINP 06:04 → SUATTDRO 08:38 → 2N 11:46